=== PATIENT | female | born 1990 | race Caucasian/White ===

== ENCOUNTER 2022-05-27 13:52 | Emergency (ER) | payer MEDICAID ==
[~2022-05-27] VITALS: Ht 154.9 cm; Wt 63.5 kg
[2022-05-27 13:55] VITALS: BP_SYST 137
[2022-05-27 14:46] LABS: BASOPHILS % (AUTO) 0.4 % (0.0-2.0); EOSINOPHILS # (AUTO) 0.1 K/uL (0.0-0.4); EOSINOPHILS % (AUTO) 0.9 % (0.0-4.0); HEMATOCRIT 39.2 % (36-48); HEMOGLOBIN 12.9 g/dL (12.0-16.0); LYMPHOCYTES # (AUTO) 1.5 K/uL (1.0-5.5); LYMPHOCYTES % (AUTO) 13.6 % (20.5-51.5); MEAN CORPUSCULAR HEMOGLOBIN 26 pg (27-31); MEAN CORPUSCULAR HGB CONC 33 % (32-36); MEAN CORPUSCULAR VOLUME 80 fL (79.0-98.0); MONOCYTES # (AUTO) 0.4 K/uL (0.0-1.0); MONOCYTES % (AUTO) 3.5 % (1.7-9.3); NEUTROPHILS # (AUTO) 8.7 K/uL (1.8-7.7); NEUTROPHILS % (AUTO) 81.6 % (40.0-70.0); PLATELET COUNT (AUTO) 180 K/uL (130-430); RED BLOOD CELL COUNT(AUTO) 4.89 MIL/uL (4.2-6.2); RED CELL DISTRIBUTION WIDTH 14.5 % (9.0-15.0); WHITE BLOOD COUNT (AUTO) 10.7 K/uL (4.8-10.8)
[2022-05-27 15:12] LABS: CALCIUM 9.1 mg/dL (8.4-11.0); CREATININE 0.69 mg/dL (0.55-1.30); POTASSIUM 3.9 mmol/L (3.5-5.1)
[2022-05-27 15:16] LABS: ALBUMIN 3.7 g/dL (3.4-4.8); TOTAL BILIRUBIN 0.5 mg/dL (0.0-1.0)
--- NOTE | 2022-05-27 16:11 | NUR ---
PT BROUGHT IN FROM HOME COMPLAINING OFINTERMITTENT NONRADIATING AND DULL LUQ ABDOMINAL PAIN AND URINARY FREQUENCY STARTING LAST NIGHT . PAIN 2/10
--- NOTE | 2022-05-27 16:18 | NUR ---
Danial jay in ED - 05/31/22 at 2138 by SDEDCJM WILLIAMS Brito at bedside examining patient.
--- NOTE | 2022-05-27 16:18 | NUR ---
ER IN TRIAGE examining patient.
[2022-05-27 18:26] LABS: BILIRUBIN,URINE NEGATIVE (NEGATIVE); BLOOD, URINE 3+ (NEGATIVE); CLARITY/URINE CLOUDY (CLEAR); COLOR,URINE RED (YELLOW); GLUCOSE,URINE NEGATIVE (NEGATIVE); KETONES,URINE NEGATIVE (NEGATIVE); LEUKOCYTE ESTERASE ,URINE 2+ (NEGATIVE); NITRITE, URINE POSITIVE (NEGATIVE); PROTEIN URINE 2+ (NEGATIVE); UROBILINOGEN,URINE 0.2 (0.2-1.0)
[2022-05-27] MEDS ORDERED: ACET325T53 PO (18:41)
[2022-05-27] MEDS ORDERED: SIME80TA15 PO (18:41)
[2022-05-27] MEDS ORDERED: CEPH-548 PO (19:08)
[2022-05-27 19:27] LABS: BACTERIA,URINE MODERATE /HPF (None Seen); RBC,URINE >100 /HPF (0-3); WBC,URINE 50-80 /HPF (0-3)
[2022-05-27 19:28] LABS: MUCUS,URINE None Seen /LPF (None Seen)
[2022-05-27 19:37] VITALS: BP_SYST 122
--- NOTE | 2022-05-27 19:37 | NUR ---
Patient given written and verbal discharge instructions and verbalizes understanding. ER MD discussed with patient the results and treatment provided. Patient in stable condition. ID arm band removed. Rx of TYLENOL, KEFLEX, MYLICON given. Patient educated on pain management and to follow up with PMD. Pain Scale 0/10 Opportunity for questions provided and answered. Medication side effect fact sheet provided.
== END 2022-05-27 19:37 | disposition home or self-care (01) ==
LOC: SED 13:52
DX: I89.8 Other specified noninfective disorders of lymphatic vessels and lymph nodes (principal); N39.0 Urinary tract infection, site not specified; R10.12 Left upper quadrant pain; I10 Essential (primary) hypertension; Z79.899 Other long term (current) drug therapy
CPT/HCPCS: 36415; 76376; 80053; 81000; 81025; 83690; 84702; 85025; 87086; 99284

== ENCOUNTER 2023-10-20 01:06 | Emergency (ER) | payer MEDICAID ==
[~2023-10-20] VITALS: Ht 154.9 cm; Wt 68.0 kg
[~2023-10-20 01:06] MED LIST: ACET325T53 PO; CEPH-548 PO; SIME80TA15 PO
[2023-10-20 01:47] VITALS: BP_SYST 124; PULSE 74; RESP 18; TEMP 98.3; O2SAT 99
[2023-10-20 02:01] LABS: BILIRUBIN,URINE NEGATIVE (NEGATIVE); CLARITY/URINE SL CLOUDY (CLEAR); COLOR,URINE YELLOW (YELLOW); GLUCOSE,URINE NEGATIVE (NEGATIVE); KETONES,URINE NEGATIVE (NEGATIVE); LEUKOCYTE ESTERASE ,URINE 1+ (NEGATIVE); NITRITE, URINE NEGATIVE (NEGATIVE); PH,URINE 6.5 (5.0-8.0); PROTEIN URINE TRACE (NEGATIVE); UROBILINOGEN,URINE 0.2 (0.2-1.0)
[2023-10-20 02:26] LABS: BLOOD, URINE TRACE (NEGATIVE)
[2023-10-20 02:28] LABS: BACTERIA,URINE FEW /HPF (None Seen)
[2023-10-20] MEDS ORDERED: CIPR500T5 PO (02:39)
[2023-10-20 02:45] VITALS: BP_SYST 127; PULSE 71; RESP 18; TEMP 98.3; O2SAT 99
== END 2023-10-20 02:49 | disposition home or self-care (01) ==
LOC: SED 01:06
DX: N39.0 Urinary tract infection, site not specified (principal); Z79.899 Other long term (current) drug therapy
CPT/HCPCS: 81000; 81001; 81015; 87086; 99283

== ENCOUNTER 2024-04-17 15:08 | Emergency (ER) | payer MEDICAID ==
[~2024-04-17] VITALS: Ht 154.9 cm; Wt 68.0 kg
[~2024-04-17 15:08] MED LIST changes: +CIPR500T5 PO
[2024-04-17 15:15] VITALS: BP_SYST 140; PULSE 78; RESP 18; TEMP 98.6; O2SAT 97
[2024-04-17] MEDS: HYDROcodone/ACETAMIN 5-325 MG TAB (NORCO/ VICODIN) PO ONE (16:17)
[2024-04-17 17:24] VITALS: BP_SYST 140; PULSE 78; RESP 18; TEMP 98.6; O2SAT 97
== END 2024-04-17 17:20 | disposition home or self-care (01) ==
LOC: SED 15:08
DX: S93.402A Sprain of unspecified ligament of left ankle, initial encounter (principal); Z79.899 Other long term (current) drug therapy; Z79.2 Long term (current) use of antibiotics; X50.1XXA Overexertion from prolonged static or awkward postures, initial encounter; Y93.89 Activity, other specified; Y92.89 Other specified places as the place of occurrence of the external cause; Y99.8 Other external cause status
CPT/HCPCS: 99283